=== PATIENT | male | born 1995 | race Hispanic/Latino ===

== ENCOUNTER 2022-09-06 00:38 | Emergency (ER) | payer MEDICAID, OTHER ==
[~2022-09-06] VITALS: Ht 180.3 cm; Wt 108.9 kg
[2022-09-06 05:06] VITALS: BP 135/86
== END 2022-09-06 06:11 | disposition home or self-care (01) ==
LOC: EDH 00:38
DX: F41.8 Other specified anxiety disorders (principal); F41.0 Panic disorder [episodic paroxysmal anxiety]